=== PATIENT | male | born 1990 | race Caucasian/White ===

== ENCOUNTER 2018-12-15 02:46 | Emergency (ER) | payer SELFPAY ==
[~2018-12-15] VITALS: Ht 188 cm; Wt 97.5 kg
--- NOTE | 2018-12-15 02:52 | NUR ---
TO BED 2 AMBULATORY C/O HEADACHE X20 MIN WASTE REMOVALIST. PT AAOX4 NO ACUTE DISTRESS NOTED, RESP EVEN AND UNLABORED. PUPILS PERRLA. PT ABLE TO MOVE ALL EXTREMITIES WELL WITH BILATERAL EQUAL DOOR TO DOOR SELLING DISTRIBUTOR. SKIN WARM, DIAPHORETIC. PLACE PT ON CARDIAC MONITORING, CONTINUOUS POX. NOTED PT HR-130'S, PT DENIES ANY DRUG USE. PENDING ER MD [place]. Addendum: 12/15/18 at 0324 by KIMBERLY PT APPEARS RESTLESS AND ANXIOUS.
--- NOTE | 2018-12-15 02:56 | NUR ---
[facility] RECIEV[facility]. WILL CARRY OUT ORDERS.
[2018-12-15] MEDS ORDERED: MORPHINE SULFATE INJ 4 MG/ML DISP.SYRIN ONE (03:12)
[2018-12-15] MEDS ORDERED: ONDANSETRON HCL/PF 4 MG/2 ML VIAL ONE (03:12)
--- NOTE | 2018-12-15 03:17 | NUR ---
PT MEDICATED ORDERED.
--- NOTE | 2018-12-15 03:20 | NUR ---
PT TRANSPORTED TO RADIOLOGY FOR CT HEAD.
[2018-12-15 03:23] LABS: BASOPHILS # (AUTO) 0.1 /CMM (0.0-0.2); BASOPHILS % (AUTO) 0.6 % (0.0-2.0); EOSINOPHILS % (AUTO) 1.1 % (0.0-6.0); HEMATOCRIT 41 % (39-51); LYMPHOCYTES # (AUTO) 1.5 /CMM (0.8-4.8); LYMPHOCYTES % (AUTO) 15.6 % (20.0-44.0); MEAN CORPUSCULAR HGB CONC 34 g/dl (31.0-36.0); MEAN CORPUSCULAR VOLUME 91 fL (80-96); MONOCYTES # (AUTO) 0.9 /CMM (0.1-1.30); MONOCYTES % (AUTO) 9.7 % (2.0-12.0); NEUTROPHILS # (AUTO) 7.1 /CMM (1.8-8.9); PLATELET COUNT (AUTO) 218 /CMM (150-450); RED BLOOD CELL COUNT(AUTO) 4.55 MIL/uL (4.5-6.0); WHITE BLOOD COUNT (AUTO) 9.7 K/uL (4.3-11.0)
--- NOTE | 2018-12-15 03:28 | NUR ---
PT BACK FROM RADIOLOGY. PENDING CT HEAD RESULT.
[2018-12-15 03:30] LABS: CREATININE 0.9 mg/dL (0.6-1.3); POTASSIUM 3.6 mmol/L (3.5-5.1)
[2018-12-15] MEDS ORDERED: IV NS 0.9% 1,000 ML BAG IV ONE (03:30)
[2018-12-15] MEDS ORDERED: MORPHINE SULFATE INJ 2 MG/ML DISP.SYRIN IV ONE (03:30)
[2018-12-15] MEDS ORDERED: ONDANSETRON HCL/PF 4 MG/2 ML VIAL IVP ONE (03:30)
[2018-12-15] MEDS ORDERED: METOCLOPRAMIDE HCL 10 MG/2 ML VIAL ONE (03:58)
[2018-12-15] MEDS ORDERED: METOCLOPRAMIDE HCL 10 MG/2 ML VIAL IV ONE (04:00)
--- NOTE | 2018-12-15 04:33 | NUR ---
PT SITTING UP IN BED TALKING TO FRIENDS. PT STILL C/O HEADACHE 10/14. ER MD AWARE. WILL CONTINUE TO MONITOR PT CLOSELY.
--- NOTE | 2018-12-15 04:46 | NUR ---
ER MD AT BEDSIDE TO RE-EVAL PT. PT VERBALIZE RELIEF OF HEADACHE. AWAITING CT HEAD RESULT.
--- NOTE | 2018-12-15 05:21 | NUR ---
IV removed. Catheter intact and site benign. Pressure and 4x4 applied to site. No bleeding noted. Patient discharged to home in stable condition. Written and verbal after care instructions given. Patient verbalizes understanding of instruction. ambulatory with a steady gait noted. pt aaox4 no acute distress noted,r sulema even and unlabored. advice pt not to drive or operate any machienry due to pt was given narcotic medicine. pt verbalize understanding.
[2018-12-15 05:23] VITALS: BP 127/69
== END 2018-12-15 05:27 | disposition home or self-care (01) ==
LOC: ER 02:54
DX: R51 Headache (principal); R11.0 Nausea; Z60.2 Problems related to living alone
CPT/HCPCS: 36415; 70450; 80048; 85025; 96374; 96375; 99284; J2270; J2405; J2765; J7030